=== PATIENT | male | born 1950 | race Caucasian/White ===

== ENCOUNTER 2024-10-18 09:22 | Inpatient (IN) ==
[2024-10-18 09:55] LABS: ABS Basophils 0.1 10^3/uL (0.0-0.1); ABS Eosinophils 0.1 10^3/uL (0.0-0.5); ABS Lymphocytes 0.9 10^3/uL (1.0-4.8); ABS Monocytes 0.8 10^3/uL (0.0-1.1); ABS Neutrophils 9.3 10^3/uL (1.5-7.6); Eosinophil % 0.5 %; Hemoglobin 10.1 g/dL (13.2-16.3); Lymphocyte % 8.2 %; Mean Corpuscular Hemoglobin 32.9 pg (27-33); Mean Corpuscular Hgb Conc 33.7 g/dL (31-36); Mean Corpuscular Volume 97.6 fL (80-97); Platelet Count 648 10^3/uL (150-450); Red Blood Count 3.07 10^6/uL (4.06-5.63); Red Cell Distribution Width 15.5 % (12-17); White Blood Count 11.2 10^3/uL (3.6-10.2)
[2024-10-18 09:56] LABS: Activated Partial Thrombo Time 22.1 seconds (26.0-38.0); INR 1.07 (0.85-1.14)
[2024-10-18 10:12] LABS: Albumin 4.1 g/dL (3.5-5.7); Albumin/Globulin Ratio 1.6 (1-3); Calcium 9.3 mg/dL (8.6-10.3); Creatinine, Serum 0.74 mg/dL (0.67-1.17); Globulin 2.6 g/dL (2-4); Potassium 4.8 mmol/L (3.5-5.0); Total Bilirubin 0.9 mg/dL (0.2-1.0); Total Protein 6.7 g/dL (6.4-8.9); eGFR CKD-EPI 95.1 (>60)
[2024-10-18] MEDS: Iohexol 350 (CONTRAST) 500 ML MDV IV ONE (10:34)
[2024-10-18 13:18] LABS: Urine Appearance Turbid; Urine Bilirubin Negative (Negative); Urine Blood 1+ (Negative); Urine Color Yellow; Urine Glucose Negative (Negative); Urine Ketones Negative (Negative); Urine Nitrite 2+ (Negative); Urine Protein Trace (Negative); Urine Specific Gravity 1.038 (1.002-1.030); Urine Urobilinogen Negative (Negative); Urine pH 5.5 (5.0-8.0)
[2024-10-18 13:21] LABS: Urine Bacteria 3+ /HPF (Absent); Urine Red Blood Cell 2+(6-10/hpf) /HPF (0-Trace); Urine White Blood Cell 3+(>20/hpf) /HPF (0-Trace)
[2024-10-18] MEDS ORDERED: Ondansetron ODT 4 mg TAB 4 MG TAB PO PRN (13:26)
[2024-10-18 13:52] LABS: Ferritin 177.9 ng/mL (24-336)
[2024-10-18] MEDS: Pantoprazole VIAL 40 MG VIAL IV ONE (14:30)
[2024-10-18 14:33] LABS: Folate 16.97 ng/mL (5.90-24.80)
[2024-10-18] MEDS: Lidocaine PATCH 5% PATCH TRANSDERM SCH (18:00)
[2024-10-18] MEDS: Pantoprazole VIAL 40 MG VIAL IV SCH (22:09)
[2024-10-18 22:37] LABS: Hemoglobin 8.8 g/dL (13.2-16.3)
[2024-10-19 06:34] LABS: ABS Basophils 0.1 10^3/uL (0.0-0.1); ABS Eosinophils 0.1 10^3/uL (0.0-0.5); ABS Monocytes 0.9 10^3/uL (0.0-1.1); ABS Neutrophils 7.5 10^3/uL (1.5-7.6); Corrected Retic Count 1.5 % (0.5-1.5); Hematocrit 25.4 % (38-53); Hematocrit for Retic CNT 25.4 % (38-53); Hemoglobin 8.9 g/dL (13.2-16.3); Immature Retic Fraction 0.33; Lymphocyte % 10.5 %; Mean Corpuscular Hemoglobin 33.5 pg (27-33); Mean Corpuscular Hgb Conc 34.9 g/dL (31-36); Platelet Count 567 10^3/uL (150-450); RBC Retic Count 2.65 10^6/ul (4.06-5.63); Red Blood Count 2.65 10^6/uL (4.06-5.63); Red Cell Distribution Width 15.2 % (12-17); White Blood Count 9.6 10^3/uL (3.6-10.2)
[2024-10-19 07:00] LABS: Albumin 3.6 g/dL (3.5-5.7); Albumin/Globulin Ratio 1.6 (1-3); Calcium 9.1 mg/dL (8.6-10.3); Creatinine, Serum 0.75 mg/dL (0.67-1.17); Globulin 2.3 g/dL (2-4); Magnesium 1.8 mg/dL (1.9-2.7); Potassium 4.4 mmol/L (3.5-5.0); Total Bilirubin 0.8 mg/dL (0.2-1.0); Total Protein 5.9 g/dL (6.4-8.9); eGFR CKD-EPI 94.7 (>60)
[2024-10-19] MEDS: Magnesium Sulfate 2 gm BAG 2 GM/50 ML BAG IVPB ONE (09:42)
[2024-10-20 05:52] LABS: Hematocrit 24.2 % (38-53); Hemoglobin 8.4 g/dL (13.2-16.3); Mean Corpuscular Hemoglobin 33.5 pg (27-33); Mean Corpuscular Hgb Conc 34.9 g/dL (31-36); Mean Corpuscular Volume 95.8 fL (80-97); Mean Platelet Volume 8.2 fL (7.5-11.2); Platelet Count 472 10^3/uL (150-450); Red Blood Count 2.52 10^6/uL (4.06-5.63); Red Cell Distribution Width 14.6 % (12-17); White Blood Count 9.5 10^3/uL (3.6-10.2)
[2024-10-20 06:12] LABS: Albumin 3.6 g/dL (3.5-5.7); Albumin/Globulin Ratio 1.7 (1-3); Calcium 8.9 mg/dL (8.6-10.3); Creatinine, Serum 0.75 mg/dL (0.67-1.17); Globulin 2.1 g/dL (2-4); Potassium 4.2 mmol/L (3.5-5.0); Total Bilirubin 0.7 mg/dL (0.2-1.0); Total Protein 5.7 g/dL (6.4-8.9); eGFR CKD-EPI 94.7 (>60)
[2024-10-20] MEDS: cefTRIAXone 1 gm/50 mL D5W 1 GM/50 ML BAG IV SCH (12:40)
[2024-10-21 05:49] LABS: ABS Basophils 0.1 10^3/uL (0.0-0.1); ABS Eosinophils 0.2 10^3/uL (0.0-0.5); ABS Lymphocytes 1.2 10^3/uL (1.0-4.8); ABS Monocytes 0.7 10^3/uL (0.0-1.1); ABS Neutrophils 5.3 10^3/uL (1.5-7.6); ABS Nucleated RBC 0.01 10^3/ul; Eosinophil % 2.4 %; Hematocrit 24.1 % (38-53); Hemoglobin 8.4 g/dL (13.2-16.3); Lymphocyte % 15.9 %; Mean Corpuscular Hemoglobin 33.6 pg (27-33); Mean Corpuscular Volume 95.8 fL (80-97); Mean Platelet Volume 8.1 fL (7.5-11.2); Nucleated Red Blood Cells % 0.1 %/100WBC (0.0-0.8); Platelet Count 423 10^3/uL (150-450); Red Blood Count 2.51 10^6/uL (4.06-5.63); Red Cell Distribution Width 14.4 % (12-17); White Blood Count 7.4 10^3/uL (3.6-10.2)
[2024-10-21 10:23] VITALS: BP 128/69
== END 2024-10-21 11:10 | DRG 378 ==
LOC: EDHOLD 09:22 → ED 09:22 → SSU 14:26
PROVIDERS: ADMIT Internal Medicine; ATTEND Internal Medicine